=== PATIENT | male | born 1975 ===

== ENCOUNTER 2017-02-06 01:29 | Inpatient (IN) | payer OTHER ==
[2017-02-06 04:08] VITALS: BMI 29.8
[2017-02-06] MEDS ORDERED: SODIUM CHLORIDE 0.9% 1,000 ML IV SCH ×2 (04:15→08:15)
[2017-02-06] MEDS ORDERED: PUMP TUBING ONE (04:36)
[2017-02-06] MEDS ORDERED: SODIUM CHLORIDE 0.9% FLUSH 10 ML ONE (04:39)
[2017-02-06] MEDS ORDERED: MORPHINE SULFATE 4 MG/ML SYRINGE IV PRN (05:37)
[2017-02-06] MEDS ORDERED: DIPHENHYDRAMINE HCL 50 MG/1 ML VIAL IV PRN (05:37)
[2017-02-06] MEDS ORDERED: METOPROLOL TARTRATE 1 MG/ML 5ML VIAL IV SCH ×2 (06:00→08:14)
[2017-02-06] MEDS ORDERED: MENTHOL/CETYLPYRD 1 EACH LOZENGE PO PRN (06:02)
[2017-02-06] MEDS ORDERED: BLISTEX LIPSTICK 1 EACH TP PRN (06:02)
[2017-02-06] MEDS ORDERED: SODIUM CHLORIDE 0.9% 100 ML IV PRN (06:02)
[2017-02-06] MEDS: PANTOPRAZOLE SODIUM 40 MG VIAL IV SCH ×3 (06:22→22:44)
[2017-02-06] MEDS ORDERED: INSULIN ASPART (DOSE) 100 UNITS/1 ML SUB-Q PRN (06:26)
[2017-02-06 06:37] LABS: ABSOLUTE NEUTROPHIL COUNT 7.9 K/mm3 (1.8-7.7); BASO % 0.3 % (0.2-1.0); HEMATOCRIT 38.1 % (32.0-52.0); HEMOGLOBIN 12.8 gm/l (14.0-18.0); IMM NEUT% 0.3 % (0-1); LYMPH # 0.8 (1.0-4.8); MEAN CELL VOLUME 87.6 fl (80.0-94.0); MEAN CORPUSCULAR HEMOGLOBIN 29.4 pg (27.0-31.0); MEAN CORPUSCULAR HGB CONC 33.6 g/dl (33.0-37.0); MEAN PLATELET VOLUME 10.8 fl (7.4-10.4); MONO # 0.1 (0.0-0.8); MONO % 1.5 % (4-12); NEUT % 88.9 % (43-75); PLATELET COUNT 229 K/mm3 (130-400); RED CELL DISTRIBUTION WIDTH 12.8 % (11.5-14.5)
[2017-02-06] MEDS ORDERED: INSULIN ASPART (DOSE) 100 UNITS/1 ML ONE (06:40)
[2017-02-06 06:51] LABS: ALB/GLOB RATIO 1.6 (>1.0); CALCIUM 8.9 mg/dL (8.6-10.3)
[2017-02-06] MEDS: D5 1/2NS with 20 mEq KCL 1,000 ML IV SCH (07:05)
[2017-02-06] MEDS ORDERED: SODIUM CHLORIDE 0.9% 1,000 ML ONE ×2 (08:21→12:30)
--- NOTE | 2017-02-06 08:31 | US ---
ABDOMINAL-LIMITED: 02/06/2017 6:15 AM CLINICAL HISTORY: Mid epigastric pain since yesterday.. STUDY: Limited right upper quadrant ultrasound COMPARISON: none FINDINGS: Gallbladder: Wall thickness: Normal Cholelithiasis: none Pericholecystic Fluid: none Sonographic Ram's Sign: negative Bile ducts: : Bile duct measures upwards 4 mm. Limited visualized Liver and RUQ structures: Echogenic focus is present near the anjel hepatis. Findings could relate to focal fat though other lesions are possible. Consideration for cross-sectional imaging should be made for further assessment. IMPRESSION: No findings of acute cholecystitis or cholelithiasis. Echogenic focus is incidentally noted along the anjel hepatis which may relate to focal fat though other lesions are possible. Consideration for cross-sectional imaging should be made. Report was uploaded to the electronic medical record at approximately 0828 hours on 02/06/2017
[2017-02-06] MEDS ORDERED: CALCIUM CARBONATE 500 MG TAB.CHEW PO PRN (08:47)
[2017-02-06] MEDS ORDERED: INSULIN GLARGINE (DOSE) 100 UNITS/ML UNIT SUB-Q SCH (09:00)
--- NOTE | 2017-02-06 09:01 | HP ---
Ryan Cosby [id number] DATE OF ADMISSION: 02/06/2017 CHIEF COMPLAINT: Vomiting and abdominal pain. HISTORY OF PRESENT ILLNESS: The patient is a 41-year-old disabled [employer] with a reported history of type 1 diabetes who reports having some nausea and vomiting for the last couple of days. His last meal was Sunday evening. His abdominal pain had increased on Sunday, February 05. He has not had prior history of similar symptoms. He had some loose stools initially, but has not had any recent loose stools. He has had no fevers. Patient presented to the emergency department at the [facility] and was noted to be tachycardic. Chest x-ray was unremarkable. CT of the abdomen did not show obstruction, appendicitis, or significant gallbladder disease. No others around him have had the same symptoms. He reports having some bright red blood when he first had thrown up on Sunday. PAST MEDICAL HISTORY: Remarkable for type 1 diabetes diagnosed 2005, he takes a dosage of insulin that would suggest some degree of insulin resistance. He has a history of traumatic brain injury and concussion 2002, history of posttraumatic stress disorder, history of chromatic exposure noted on [facility] records, chronic pain, penile psoriasis. He reports no alcohol since 2009. He reports no drug use since 2009. PAST SURGICAL HISTORY: No abdominal surgeries. ALLERGIES: SULFA, FLUOXETINE , PRAVASTATIN, AND SIMVASTATIN. MEDICATIONS: 1. Clotrimazole 1% twice daily. 2. Hydroxyzine 10 mg one to four by mouth bedtime and as needed. 3. Lantus 50 units in the morning. 4. Insulin Aspartate 30 units twice daily. 5. Lisinopril 20 mg daily, he has taken this for over 10 years. 6. Mirtazapine 30 mg half by mouth at bedtime. 7. Multivitamin 1 by mouth daily. 8. He had been on ergocalciferol 50,000 units daily, but states he has not been taking this recently. SOCIAL HISTORY: He lives in [place]. He is single. Lives with his parents. No kids. He served in the [employer] from 1995 to 2005 in [place]. He quit smoking 2014. He quit alcohol 2009. He reports no drug use since 2009. He is not working. Last worked 2005. He is 100% service connected disability. He has dogs and pigs for pets. FAMILY HISTORY: Father is 70 and has hypertension and depression. Mom is 70 and has allergies. He has one sister that is healthy. REVIEW OF SYSTEMS: Eyes have been okay. Ears okay. Nose okay. Mouth is dry. Teeth are okay. Neck is okay. Breathing is okay. Heart: No complaints. Stomach hurts some in the epigastric area, it can come and go somewhat. No diarrhea, no constipation. He had a few loose stools before. No urinary complaints. No skin complaints. He has had a history of a traumatic brain injury, but no history of stroke. He has had some pain medicine which helped some. He does ask about drinking from a well. He notes that he had a little bit of algae noted on the filter he uses. His mom and dad drink from the same water, but he states they do not drink as much of the water as he does. PHYSICAL EXAMINATION: GENERAL: Uncomfortable male with slightly flat affect retching some. VITAL SIGNS: Blood pressure 176/110, pulse 124, 99% saturation on room air, respirations 18. His temperature is 98.9. HEENT: Head is normocephalic, atraumatic. Hair is trimmed short. Eyes: Pupils slightly small. No icterus is noted. Ears are normal. Nose unremarkable. Mouth has slightly dry mucosa, but is otherwise unremarkable. NECK: Supple. No jugular venous distention. No rigidity. LUNGS: Clear to auscultation bilaterally. HEART: Tachycardic and regular. ABDOMEN: Bowel sounds are decreased. Tender across the epigastric area. No rebound, no guarding noted. GENITOURINARY: Testes descended bilaterally. No hernia's noted. EXTREMITIES: No cellulitis. No ulceration. Pulses are good throughout. NEUROLOGIC: Patient's cranial nerves are intact. No deficits noted. Difficult to exam due to his nausea, pain, and retching. DIAGNOSTICS: Chest x-ray from outside source shows no acute changes. EKG normal sinus rhythm 90 beats per minute, NY 126, QRS 98, QTC 435, axis 65. CT of the abdomen report shows atelectasis, 4 mm left lower lobe nodule, mild hepatosplenomegaly, 5 mm left adrenal nodule, gallbladder, pancreatitis, right adrenal, and kidney's appear to be normal, small hiatal hernia, esophageal wall thickening, possible varices, no obstruction seen, no aneurysm seen, appendix normal, subtle fat density terminal ileal wall, no free fluid, no free air. LABORATORY: Lactate was 1.8. His sodium 137, potassium 3.6, chloride 95, CO 2 26, BUN 11, creatinine 0.9, glucose 69. Anion gap is 20. Methemoglobin is 0.4, carboxyhemoglobin is 0.2. Troponin T less than 0.01. Lipase 13, AST 38, ALT 79. Estimated GFR of 94, alk phos 103, bilirubin 0.6, pH 7.57. Ionized calcium 1.17. ASSESSMENT AND PLAN: 1. Nausea and vomiting with abdominal pain, uncertain cause. Plan to continue IV fluids. Plan pain medicine and nausea medicines. His last meal was Sunday evening. Anticipate recheck complete blood count, comprehensive metabolic panel, troponin, urinalysis. Consult surgery. We will obtained ultrasound of the gallbladder. 2. Diabetes. History suggests type 1 although, his dosage would suggest significant insulin resistance. Anticipate revised dose of Lantus and sliding scale. 3. History of traumatic brain injury not otherwise addressed. 4. Tachycardia. Pain versus dehydration. Will continue intravenous fluids. 5. Question of varices and splenomegaly on CT. Appreciate surgical input. We will be using Protonix intravenously. Patient reports no alcohol since 2009. 6. Hypertension. Anticipate use of intravenous metoprolol for this as well as his tachycardia. 7. Venous thrombosis prophylaxis mechanical. 8. Code status full. 9. Disabled . Anticipate social work consult. JOB: [id number] CC: Dr. Douglass at the [facility] Dr. Allegra Cosby [id number] DATE OF ADMISSION: 02/06/2017 CHIEF COMPLAINT: Vomiting and abdominal pain. HISTORY OF PRESENT ILLNESS: The patient is a 41-year-old disabled [place] with a reported history of type 1 diabetes who reports having some nausea and vomiting for the last couple of days. His last meal was Sunday evening. His abdominal pain had increased on Sunday, February 05. He has not had prior history of similar symptoms. He had some loose stools initially, but has not had any recent loose stools. He has had no fevers. Patient presented to the emergency department at the [facility] and was noted to be tachycardic. Chest x-ray was unremarkable. CT of the abdomen did not show obstruction, appendicitis, or significant gallbladder disease. No others around him have had the same symptoms. He reports having some bright red blood when he first had thrown up on Sunday. PAST MEDICAL HISTORY: Remarkable for type 1 diabetes diagnosed 2005, he takes a dosage of insulin that would suggest some degree of insulin resistance, history of traumatic brain injury and concussion 2002, history of posttraumatic stress disorder, [facility], chronic pain, penile psoriasis. He reports no alcohol since 2009. He reports no drug use since 2009. PAST SURGICAL HISTORY: No abdominal surgeries. ALLERGIES: SULFA, FLUOXETINE , PRAVASTATIN, AND SIMVASTATIN. MEDICATIONS: 9. Clotrimazole 1% twice daily. 10. Hydroxyzine 10 mg one to four by mouth bedtime and as needed. 11. Lantus 50 units in the morning. 12. Insulin Aspartate 30 units twice daily. 13. Lisinopril 20 mg daily, he has taken this for over 10 years. 14. Mirtazapine 30 mg half by mouth at bedtime. 15. Multivitamin 1 by mouth daily. 16. He had been on ergocalciferol 50,000 units daily, but states he has not been taking this recently. SOCIAL HISTORY: He lives in [place]. He is single. Lives with his parents. No kids. He has severed in the [employer] from 1995 to 2005 in [place]. He quit smoking 2014. He quit alcohol 2009. He reports no drug use since 2009. He is not working. Last worked 2005. He is 100% service connected disability. He has dogs and pigs for pets. FAMILY HISTORY: Father is 70 and has hypertension and depression. Mom is 70 and has allergies. He has one sister that is healthy. REVIEW OF SYSTEMS: Eyes have been okay. Ears okay. Nose okay. Mouth is dry. Teeth are okay. Neck is okay. Breathing is okay. Heart: No complaints. Stomach hurts some in the epigastric area, it can come and go somewhat. No diarrhea, no constipation. He had a few loose stools before. No urinary complaints. No skin complaints. He has had a history of a traumatic brain injury, but no history of stroke. He has had some pain medicine which helped some. He does ask about drinking from a well. He notes that he had a little bit of algae noted on the filter he uses. His mom and dad drink from the same water, but he states they do not drink as much of the water as he does. PHYSICAL EXAMINATION: GENERAL: Uncomfortable male with slightly flat affect retching some. VITAL SIGNS: Blood pressure 176/110, pulse 124, 99% saturation on room air, respirations 18. His temperature is 98.9. HEENT: Head is normocephalic, atraumatic. Hair is trimmed short. Eyes: Pupils slightly small. No icterus is noted. Ears are normal. Nose unremarkable. Mouth has slightly dry mucosa, but is otherwise unremarkable. NECK: Supple. No jugular venous distention. No rigidity. LUNGS: Clear to auscultation bilaterally. HEART: Tachycardic and regular. ABDOMEN: Bowel sounds are decreased. Tender across the epigastric area. No rebound, no guarding noted. GENITOURINARY: Testes descended bilaterally. No hernia's noted. EXTREMITIES: No cellulitis. No ulceration. Pulses are good throughout. NEUROLOGIC: Patient's cranial nerves are intact. No deficits noted. Difficult to exam due to his nausea, pain, and retching. DIAGNOSTICS: Chest x-ray from outside source shows no acute changes. EKG normal sinus rhythm 90 beats per minute, NY 126, QRS 98, QTC 435, axis 65. CT of the abdomen report shows atelectasis, 4 mm left lower lobe nodule, mild hepatosplenomegaly, 5 mm left adrenal nodule, gallbladder, pancreatitis, right adrenal, and kidney's appear to be normal, small hiatal hernia, esophageal wall thickening, possible varices, no obstruction seen, no aneurysm seen, appendix normal, subtle fat density terminal ileal wall, no free fluid, no free air. LABORATORY: Lactate was 1.8. His sodium 137, potassium 3.6, chloride 95, CO 2 26, BUN 11, creatinine 0.9, glucose 69. Anion gap is 20. Methemoglobin is 0.4, carboxyhemoglobin is 0.2. Troponin T less than 0.01. Lipase 13, AST 38, ALT 79. Estimated GFR of 94, alk phos 103, bilirubin 0.6, pH 7.57. Ionized calcium 1.17. ASSESSMENT AND PLAN: 10. Nausea and vomiting with abdominal pain, uncertain cause. Plan to continue IV fluids. Plan pain medicine and nausea medicines. His last meal was Sunday evening. Anticipate recheck complete blood count, comprehensive metabolic panel, troponin, urinalysis. Consult surgery. We will obtained ultrasound of the gallbladder. 11. Diabetes. History suggests type 1 although, his dosage would suggest significant insulin resistance. Anticipate revised dose of Lantus and sliding scale. 12. History of traumatic brain injury not otherwise addressed. 13. Tachycardia. Pain versus dehydration. Will continue intravenous fluids. 14. Question of varices and splenomegaly on CT. Appreciate surgical input. We will be using Protonix intravenously. Patient reports no alcohol since 2009. 15. Hypertension. Anticipate use of intravenous metoprolol for this as well as his tachycardia. 16. Venous thrombosis prophylaxis mechanical. 17. Code status full. 18. Disabled [place]. Anticipate social work consult. JOB: [id number] CC: Dr. Douglass at the [facility] Dr. López
[2017-02-06 09:04] LABS: SPECIFIC GRAVITY 1.015 (1.001-1.030); URINE BILIRUBIN NEGATIVE (NEGATIVE); URINE BLOOD NEGATIVE (NEGATIVE); URINE GLUCOSE (UA) 3+ (NEGATIVE); URINE LEUKOCYTE ESTERASE NEGATIVE (NEGATIVE); URINE NITRITE NEGATIVE (NEGATIVE); URINE PROTEIN NEGATIVE (NEGATIVE); URINE UROBILINOGEN NORMAL (0-1 mg/dl)
[2017-02-06 09:06] LABS: URINE APPEARANCE CLEAR; URINE COLOR YELLOW
[2017-02-06] MEDS ORDERED: METOPROLOL TARTRATE 50 MG TABLET PO SCH (10:00)
--- NOTE | 2017-02-06 10:29 | PCMCONS ---
General Surgery Consult: GENERAL SURGERY CONSULT CC: epigastric pain HPI: 41yo M with 2 days of epigastric pain. This is constant and feels like a burning sensation. He has had multiple episodes of similar pain in the past, typically associated with certain foods, worsened at night when lying down, and alleviated with Maalox/Tums. He has had associated vomiting (brown). He has noticed a small amount of blood in his vomit as recently as last week. He denies any bloody or black/tarry stools. The patient denies any recent F/C/SOB, change in bladder fx, constipation, diarrhea, unintentional weight loss, easy bleeding/bruising, or other associated symptoms. REVIEW OF SYSTEMS CONSTITUTIONAL: As per HPI. EARS, NOSE, MOUTH, THROAT: ~No sneezing or runny nose CARDIOVASCULAR: ~As per HPI. RESPIRATORY: ~As per HPI. GASTROINTESTINAL: ~As per HPI. GENITOURINARY: ~As per HPI. NEUROLOGICAL: ~No history of seizures HEMATOLOGIC: ~As per HPI. MUSCULOSKELETAL: ~No change in strength. LYMPHATICS: ~No history of splenectomy. PSYCHIATRIC: ~No change in personality or affect PMH: DM1, TBI, PTSD, h/o alcohol abuse (none since 2009) PSH: LEFT arm surgery Meds: Atarax, Insulin, Lisinopril, Remeron, MVI, Calcium All: Sulfa SH: Quit smoking in 2014, quit EtOH in 2009, denies illicits FH: Two uncles with leukemia, no FH of esophageal/stomach cancer Physical Exam: General/Constitutional: Vitals documented above, comfortable in NAD Psych: A&O x 3, normal judgment and insight. Recent and remote memory intact. Mood and affect normal. Eyes: Pupils equal, no scleral icterus Ears, Nose, Mouth, Throat: gross hearing intact Neck: Supple Heart: RRR, no LE edema Lungs: Equal rise and fall of chest wall, non-labored breathing, no audible wheezes Neuro: Gross sensation intact Abdomen: Soft, NT/ND, no guarding. CT A/P (performed at [facility]): Questionable distal esophageal wall thickening although not completely evaluable given non-distension. Possible GE varices. RUQ US: FINDINGS: Gallbladder: Wall thickness: Normal Cholelithiasis: none Pericholecystic Fluid: none Sonographic Ram's Sign: negative Bile ducts: : Bile duct measures upwards 4 mm. Limited visualized Liver and RUQ structures: Echogenic focus is present near the anjel hepatis. Findings could relate to focal fat though other lesions are possible. Consideration for cross-sectional imaging should be made for further assessment. IMPRESSION: No findings of acute cholecystitis or cholelithiasis. Echogenic focus is incidentally noted along the anjel hepatis which may relate to focal fat though other lesions are possible. Consideration for cross- sectional imaging should be made. A/P: 41yo M with epigastric pain and tachycardia. Although CT queries about varices, he has no e/o cirrhosis or other secondary signs of varices ( recanalization of umbilical vein, etc.). In addition, he has a classic h/o GERD/ gastritis. I recommend EGD to establish a diagnosis. The procedure and expected post-procedure course were discussed at length. We discussed the risks of the procedure to include, but not limited to: bleeding, perforation, and an adverse reaction to sedation/anesthesia (heart attack, arrhythmia, stroke, blood clot, and ). The patient understands these risks and agrees to proceed with the procedure. Will plan for EGD this afternoon. If I note any signs of varices, I will plan to terminate the procedure. If e/o PUD/gastritis/esophagitis, will plan to take biopsies and test for H. Pylori. Continue NPO, IVF resuscitation, and BID PPI in the interim. Jermaine Berman MD General Surgery
[2017-02-06 11:13] LABS: HEMATOCRIT 36.6 % (32.0-52.0); HEMOGLOBIN 12.4 gm/l (14.0-18.0)
[2017-02-06] MEDS ORDERED: ONDANSETRON 4 MG/2ML 2 ML VIAL ONE (12:02)
[2017-02-06] MEDS ORDERED: ONDANSETRON 4 MG/2ML 2 ML VIAL IV PRN (12:02)
[2017-02-06] MEDS ORDERED: INSULIN REGULAR HUMAN (DOSE) 100 UNITS/1 ML SUB-Q ONE (12:52)
[2017-02-06] MEDS ORDERED: METOCLOPRAMIDE HCL 5 MG/ML 2ML VIAL ONE (13:03)
[2017-02-06] MEDS ORDERED: FAMOTIDINE 10 MG/ML 2ML VIAL ONE (13:03)
[2017-02-06] MEDS ORDERED: PROPOFOL 40 ML IV ONE (13:14)
[2017-02-06] MEDS: SODIUM CHLORIDE 0.9% 1,000 ML IV SCH (16:27)
[2017-02-06] MEDS: SUCRALFATE 1 G TABLET PO SCH ×2 (16:28→21:48)
[2017-02-06] MEDS: INSULIN ASPART (DOSE) 100 UNITS/1 ML SUB-Q SCH (17:44)
[2017-02-06 18:02] LABS: HELICOBACTER PYLORII DETECTION NEGATIVE (NEGATIVE)
[2017-02-06] MEDS: METOPROLOL TARTRATE 50 MG TABLET PO SCH (22:44)
[2017-02-07] MEDS: SODIUM CHLORIDE 0.9% 1,000 ML IV SCH ×2 (00:31→08:42)
[2017-02-07] MEDS: D5 1/2NS with 20 mEq KCL 1,000 ML IV SCH (01:15)
[2017-02-07 06:12] LABS: ABSOLUTE NEUTROPHIL COUNT 5.1 K/mm3 (1.8-7.7); BASO % 0.5 % (0.2-1.0); EOS # 0.1 (0.0-0.5); EOS % 1.2 % (0.9-2.9); HEMATOCRIT 36.7 % (32.0-52.0); HEMOGLOBIN 12.4 gm/l (14.0-18.0); IMM NEUT% 0.2 % (0-1); LYMPH # 2.4 (1.0-4.8); LYMPH % 29.5 % (15-45); MEAN CELL VOLUME 90.8 fl (80.0-94.0); MEAN CORPUSCULAR HEMOGLOBIN 30.7 pg (27.0-31.0); MEAN CORPUSCULAR HGB CONC 33.8 g/dl (33.0-37.0); MEAN PLATELET VOLUME 10.6 fl (7.4-10.4); MONO # 0.4 (0.0-0.8); NEUT % 63.6 % (43-75); PLATELET COUNT 218 K/mm3 (130-400); RED CELL DISTRIBUTION WIDTH 13.2 % (11.5-14.5)
[2017-02-07 06:31] LABS: CALCIUM 8.6 mg/dL (8.6-10.3)
[2017-02-07] MEDS: SUCRALFATE 1 G TABLET PO SCH ×2 (07:36→11:30)
[2017-02-07] MEDS: INSULIN ASPART (DOSE) 100 UNITS/1 ML SUB-Q SCH ×2 (08:43→12:18)
[2017-02-07] MEDS: PANTOPRAZOLE SODIUM 40 MG VIAL IV SCH (08:45)
[2017-02-07] MEDS ORDERED: INSULIN GLARGINE (DOSE) 100 UNITS/ML UNIT SUB-Q SCH (09:00)
[2017-02-07] MEDS: METOPROLOL TARTRATE 50 MG TABLET PO SCH (10:12)
[2017-02-07 11:42] VITALS: BP 119/85
--- NOTE | 2017-02-07 19:24 | DS ---
BERRY MA [id number] DATE OF ADMISSION: 02/06/2017 DATE OF DISCHARGE: 02/07/2017 DISCHARGE DIAGNOSIS: Peptic ulcer disease, with ulceration at the pyloric sphincter. H-pylori testing was negative. OTHER DIAGNOSES: Include: 1. Gastritis. 2. Esophagitis. 3. Duodenitis. 4. Vomiting, with epigastric abdominal pain. 5. Insulin-dependent diabetes, with hyperglycemia. 6. Tachycardia, likely due to dehydration. 7. Chronic essential hypertension. CONSULTATIONS: Included a surgical consultation with Dr. Jermaine Berman. PROCEDURES: Included an upper endoscopy performed by Dr. Berman on 02/06/2017. TO SUMMARIZE THE ADMISSION AND HOSPITAL COURSE: The patient is a 41-year-old male with a history of insulin-dependent diabetes who presented with complaints of nausea, vomiting and epigastric pain starting several days prior to admission. Initially he was seen at the [facility] in [place]. Admission was recommended. No beds were available. He was transferred to [facility] where he was admitted for further workup. His laboratory studies showed a glucose level of 326 and a sodium level of 129. Negative cardiac enzymes. Normal lipase. His initial hemoglobin was 12.8. He had ketonuria and glucosuria, as well as tachycardia, with a heart rate of 120. He was initially aggressively hydrated and placed on sliding scale insulin. He was placed on Protonix. He underwent endoscopy, showing findings as mentioned above. With hydration and glucose control, his blood sugars improved and his tachycardia improved. He had serial hemoglobin levels which remained stable in the range of 12.4. He had saline hydration, with improvement in his sodium levels up to 137, and his potassium level dipped a little from 4.6 to 3.4. He had adjustment of his insulin dose to a scheduled prandial insulin of 10 units with meals. He will continue with his glargine insulin at 50 units daily. H-pylori testing of his gastric biopsies remained negative. He was felt to be medically stable for discharge on 02/07/2017. PHYSICAL EXAMINATION: VITAL SIGNS: Temperature 98.1. Pulse 92. Blood pressure 124/81. Respirations 14. Oxygen saturation is 94% on room air. Body mass index is 29.8. Weight is 99.8 kilograms. GENERAL: This is a well-developed and well-nourished male in no acute distress. HEENT: Unremarkable. LUNGS: Clear to auscultation bilaterally. CARDIOVASCULAR: Reveals a regular rate and rhythm, without a murmur. ABDOMEN: Soft, nontender and nondistended, with positive bowel sounds. LABORATORY STUDIES: On the day of discharge, chemistry profile showed a sodium of 137, potassium 3.4, BUN of 12, creatinine 0.9 and glucose of 84. CBC showed a white count of 8.1, hemoglobin 12.4, and a platelet count of 218,000. DISPOSITION: Home. DISCHARGE CONDITION: Good. PRESCRIPTIONS: Include: 1. Prilosec 20 mg twice daily for thirty days and then daily thereafter. 2. Carafate 1 gram by mouth before meals and at bedtime for ten days. 3. He will resume his previous home medications, including Lotrimin one application twice daily as needed for rash and Atarax 10-40 mg at bedtime as needed for itching or sleep and 10 mg four times daily as needed for anxiety. 4. He will take an increased dose of NovoLog. He is going to give himself scheduled NovoLog of 10 units twice a day with meals, regardless of his blood sugar. He will then give himself additional NovoLog based on a moderate correction scale. I gave him permission to increase the prandial dose up to 15 units with meals if he is seeing persistent hyperglycemia. 5. He is going to continue with the Lantus insulin 50 units in the morning. 6. He will continue Lisinopril 20 mg daily, Remeron 15 mg at bedtime and a multivitamin once daily. DISCHARGE FOLLOW-UP: He is recommended to follow-up with the [place] primary care provider Dr. Douglass in the next two weeks. cc: Dr. Kirill Douglass
--- NOTE | 2017-02-09 11:42 | SURGPATH ---
[facility] [address] [place] [id number] Patient Name: BERRY MA MR#: [id number] : 1975 Gender: M Specimen #: [id number] Collected: 02/06/2017 Received: 02/08/2017 Reported: 02/09/2017 Submitting Phys: GIULIANA RODRIGUEZ Copy To Phys: [facility] MICHAELLULUANDREW III Clinical History / Pre-Operative Diagnosis: nausea and vomiting Specimen Source / Surgical Procedure Performed: #1 duodenal bulb, #2 antral biopsy, #3 body of stomach biopsy, #4 GE junction biopsy/esophagitis Interpretation: 1. DUODENAL BULB, BIOPSY: - MILD CHRONIC DUODENITIS WITH MILD VILLOUS BLUNTING. - NO EVIDENCE OF MALIGNANCY. 2. GASTRIC ANTRUM, BIOPSY: - MILD REACTIVE GASTROPATHY WITH FOCAL INTESTINAL METAPLASIA. - NO MICROORGANISMS IDENTIFIED WITH ROUTINE STAINING. - NO EVIDENCE OF SIGNIFICANT INFLAMMATION OR MALIGNANCY. 3. STOMACH, BODY, BIOPSY: - GASTRIC MUCOSA SHOWING NO DIAGNOSTIC ABNORMALITIES. - NO MICROORGANISMS IDENTIFIED WITH ROUTINE STAINING. - NO EVIDENCE OF SIGNIFICANT INFLAMMATION, INTESTINAL METAPLASIA, OR MALIGNANCY. 4. GE JUNCTION, BIOPSY: - SQUAMOUS MUCOSA WITHOUT ASSOCIATED GLANDULAR MUCOSA SHOWING MILD CHRONIC NONSPECIFIC INFLAMMATION. - NO EVIDENCE OF INTESTINAL METAPLASIA OR MALIGNANCY. Electronically Signed Out Thai Cristina M.D., Ph.D. Gross Description: The specimen is received in four formalin filled containers, labeled with the patient's name. 1. The specimen is labeled "duodenal bulb" and consists of two irregularly shaped fragment(s) of núñez tissue aggregating to 0.5 x 0.3 x 0.2 cm. The specimen is entirely submitted in cassette 1A. 2. The specimen is labeled "antrum" and consists of four irregularly shaped fragment(s) of núñez tissue aggregating to 0.3 x 0.3 x 0.1 cm. The specimen is entirely submitted in cassette 2A. 3. The specimen is labeled "body of stomach" and consists of two irregularly shaped fragment(s) of núñez tissue aggregating to 0.6 x 0.6 x 0.2 cm. The specimen is entirely submitted in cassette 3A. 4. The specimen is labeled "GE junction" and consists of one irregularly shaped fragment(s) of white tissue aggregating to 0.4 x 0.4 x 0.3 cm. The specimen is entirely submitted in cassette 4A. LUZ Brooks Microscopic Description: 1. Examination of multiple levels from the duodenum bulb biopsy shows two fragments of small bowel mucosa with expansion of the lamina propria by a mixed inflammatory cell infiltrate consisting of lymphocytes, plasma cells, and occasional eosinophils. There is associated mild villous blunting. There is no evidence of malignancy. 2. Examination of multiple levels from the gastric antrum biopsy shows multiple fragments of gastric mucosa with superficial smooth muscle proliferation associated with tortuous glands. No microorganisms are identified with routine staining. Focal intestinal metaplasia is seen. There is no evidence of significant inflammation or malignancy. 3. Examination of multiple levels from the body of the stomach biopsy shows two fragments of histologically unremarkable gastric mucosa. The lamina propria is not expanded. No microorganisms are seen with routine staining. There is no evidence of significant inflammation, intestinal metaplasia, or malignancy. 4. Examination of multiple levels from the GE junction biopsy shows a single fragment of squamous mucosa without associated glandular mucosa with a mild chronic nonspecific inflammatory cell infiltrate. There is no evidence of intestinal metaplasia or malignancy. 1: 53598 2: 54749 3: 31130 4: 79333 K29.80 K31.9 K20.9
== END 2017-02-07 12:35 | disposition home or self-care (01) | DRG 384 ==
LOC: MS 03:59
PROVIDERS: ADMIT Family Medicine; ATTEND Family Medicine
PROC: 0DB78ZX Excision of Stomach, Pylorus, Via Natural or Artificial Opening Endoscopic, Diagnostic (ICD-10-PCS; principal; 2017-02-06)
PROC: 0DB48ZX Excision of Esophagogastric Junction, Via Natural or Artificial Opening Endoscopic, Diagnostic (ICD-10-PCS; 2017-02-06)
PROC: 0DB98ZX Excision of Duodenum, Via Natural or Artificial Opening Endoscopic, Diagnostic (ICD-10-PCS; 2017-02-06)
DX: K25.9 Gastric ulcer, unspecified as acute or chronic, without hemorrhage or perforation (principal); E10.65 Type 1 diabetes mellitus with hyperglycemia; Z79.4 Long term (current) use of insulin; Z87.820 Personal history of traumatic brain injury; R00.0 Tachycardia, unspecified; I10 Essential (primary) hypertension; K29.70 Gastritis, unspecified, without bleeding; K20.9 Esophagitis, unspecified; K29.80 Duodenitis without bleeding